=== PATIENT | male | born 1950 | race Caucasian/White ===

== ENCOUNTER → 2022-08-30 | Outpatient (CLI) | payer MEDICARE ==
[~2022-08-30] MED LIST: AMLO5 PO; RAMI5 PO
== END | disposition home or self-care (01) ==
LOC: LAB 11:30 → LAB SHORT 11:30
DX: L57.0 Actinic keratosis (principal)
CPT/HCPCS: 88305

== ENCOUNTER → 2024-12-17 | Outpatient (CLI) | payer OTHER | END | disposition home or self-care (01) | LOC: PLD 07:58 → LAB SHORT 07:58 → LAB 07:58 | DX: R22.1 Localized swelling, mass and lump, neck (principal); R59.0 Localized enlarged lymph nodes | CPT/HCPCS: 88173 ==

== ENCOUNTER 2025-05-13 08:04 | Day surgery (SDC) | payer OTHER ==
[2025-05-13] VITALS (8 sets, daily range): BP systolic 95–129; BP diastolic 61–79
[~2025-05-13] VITALS: Ht 175.3 cm; Wt 77.4 kg
[~2025-05-13 08:04] MED LIST changes: +AMLO10 PO; -AMLO5 PO; +CeFAZolin Sodium 2,000 MG in NS 100 ML IV SCH; +MULTI-VITAMIN1 EAC2 PO; +SILD50TA PO
[2025-05-13] MEDS ORDERED: IBUP200 PO (08:23)
[2025-05-13] MEDS ORDERED: DIPH25 PO (08:24)
[2025-05-13] MEDS ORDERED: Bupivacaine 0.5% HCl 5 MG/ML 30MLVIAL ONE (09:01)
[2025-05-13] MEDS ORDERED: Rocuronium Bromide 10 MG/ML 5ML Injection IV ONE (09:20)
[2025-05-13] MEDS ORDERED: FentaNYL Citrate 50 MCG/ML 2 ML Injection ONE ×2 (09:20→10:49)
[2025-05-13] MEDS ORDERED: SuccINYLCHOLINE Chloride 100 MG/5 ML 5MLSYR ONE (09:20)
[2025-05-13] MEDS ORDERED: ePHEDrine Sulfate 50 MG/ML 1ML Injection ONE (09:37)
[2025-05-13] MEDS ORDERED: Glycopyrrolate 0.2 MG/ML 5ML VIAL ONE (09:39)
[2025-05-13] MEDS ORDERED: Ketorolac Tromethamine 30mg Vial ONE (09:47)
[2025-05-13] MEDS ORDERED: Ondansetron HCl 2 MG / ML 2ML Vial ONE (09:47)
[2025-05-13] MEDS ORDERED: Dexamethasone Sod Phos 10 MG/ML 1ML VIAL ONE (09:47)
[2025-05-13] MEDS ORDERED: FentaNYL Citrate 50 MCG/ML 2 ML Injection IV PRN (10:10)
[2025-05-13] MEDS ORDERED: ePHEDrine Sulfate 50 MG/ML 1ML Injection IV PRN (10:10)
[2025-05-13] MEDS ORDERED: Sugammadex Sodium 200 MG/2ML SDV (100 MG/ML) ONE (10:58)
[2025-05-13] MEDS ORDERED: HYDROcodone 7.5-APAP 325 TAB PO PRN (11:55)
[2025-05-13] MEDS ORDERED: HYDROcodone 5-APAP 325 TAB PO PRN (12:10)
--- NOTE | 2025-05-13 12:25 | NUR ---
Ambulatory in Day Surgery WITH STEADY GAIT. Discharge instructions reviewed with patient. Patient verbalizes understanding. Copy given to patient to take home. PAIN MEDS PRESCRIPTION GIVEN TO PT'S SPOUSE. GLASSES RETURNED TO PT AND HE HAD THEM ON WHEN TAKEN TO CAR BY VOLUNTEER. PT ABLE TO TRANSFER TO W/C INDEPENDENTLY. PT AND SPOUSE DENY ANY FURTHER QUESTIONS AT THIS TIME.
== END 2025-05-13 23:00 | disposition home or self-care (01) ==
LOC: ORSCMMR 08:04 → ORD 09:30 → ORSCMMR 09:30
PROVIDERS: Surgery
PROC: 0YUA4JZ Supplement Bilateral Inguinal Region with Synthetic Substitute, Percutaneous Endoscopic Approach (ICD-10-PCS; principal; 2025-05-13 09:30)
PROC: 8E0W4CZ Robotic Assisted Procedure of Trunk Region, Percutaneous Endoscopic Approach (ICD-10-PCS; principal; 2025-05-13 09:30)
PROC: 0WQF0ZZ Repair Abdominal Wall, Open Approach (ICD-10-PCS; principal; 2025-05-13 09:30)
DX: K40.21 Bilateral inguinal hernia, without obstruction or gangrene, recurrent (principal); K42.9 Umbilical hernia without obstruction or gangrene; I10 Essential (primary) hypertension; Z79.899 Other long term (current) drug therapy
CPT/HCPCS: A9270; C1781; J0330; J0690; J1100; J1885; J2405; J2704; J3010; J7120